=== PATIENT | female | born 1930 | race Caucasian/White ===

== ENCOUNTER 2021-05-17 19:19 | Inpatient (IN) | payer MEDICARE, MEDICAID ==
[2021-05-17 20:07] LABS: #Basophils 0.1 10x3/uL (0.0-0.2); #Monocytes 0.5 10x3/uL (0.0-1.1); %Lymphocytes 26.2 % (18.0-47.0); %Monocytes 6.7 % (0.0-10.0); %Neutrophils 52.7 % (40.0-75.0); Hemoglobin 11.6 g/dL (12.0-15.5); Mean Corpuscular HGB CONC 31.5 g/dL (32.0-36.0); Mean Corpuscular Hemoglobin 28.9 pg (27.0-33.0); Mean Corpuscular Volume 91.8 fl (81.6-98.3); Mean Platelet Volume 10.2 fl (7.4-10.4); Platelet Count 294 10x3/uL (150-450); RBC Distribution Width 14.1 % (11.5-14.5); Red Blood Cell (RBC) Count 4.01 10x6/uL (3.90-5.03); White Blood Cell (WBC) Count 7.6 10x3/uL (3.5-10.5)
[2021-05-17 20:21] LABS: ALT (SGPT) 10 U/L (8-55); AST (SGOT) 14 U/L (5-34); Albumin 3.9 g/dL (3.4-4.8); Alkaline Phosphatase 57 U/L (40-110); Anion Gap 15 mmol/L (10-20); BUN (Urea Nitrogen) 20 mg/dL (9.8-20.1); Bilirubin, Total 0.4 mg/dL (0.2-1.2); Calc. Creatinine Clearance 0 mL/min (70-130); Calcium 8.7 mg/dL (7.8-10.44); Carbon Dioxide 20 mmol/L (23-31); Chloride 108 mmol/L (98-107); Globulin 2.7 g/dL (2.4-3.5); Glucose 113 mg/dL (83-110); Potassium 4.4 mmol/L (3.5-5.1); Protein, Total 6.6 g/dL (5.8-8.1); Sodium 139 mmol/L (136-145)
[2021-05-17] MEDS ORDERED: HYDROcodone/Acetaminophen 5/325 mg Tablet PO PRN (21:25)
[2021-05-17] MEDS ORDERED: Nitroglycerin 0.4 MG TAB (25 Tab Bottle) SL PRN (21:25)
[2021-05-17] MEDS ORDERED: Acetaminophen 325 MG TAB PO PRN (21:25)
[2021-05-17] MEDS ORDERED: Senokot S 8.6-50 MG TAB PO PRN (21:25)
[2021-05-17] MEDS ORDERED: Calcium Carbonate 500 MG ChewTAB PO PRN (21:25)
[2021-05-17] MEDS ORDERED: Famotidine/PF 20 mg/2ml Vial SLOW IVP SCH (22:00)
[2021-05-17] MEDS ORDERED: Mag-Al 1200 mg/1200 mg/30 ML UDCUP PO SCH (22:00)
[2021-05-18] MEDS: Simethicone Chewable 80 MG TAB PO SCH ×2 (00:40→15:26)
[2021-05-18 04:22] LABS: Anion Gap 14 mmol/L (10-20); BUN (Urea Nitrogen) 16 mg/dL (9.8-20.1); Calc. Creatinine Clearance 51 mL/min (70-130); Calcium 8.4 mg/dL (7.8-10.44); Carbon Dioxide 21 mmol/L (23-31); Chloride 113 mmol/L (98-107); Cholesterol 155 mg/dl (< 200 Desired); Glucose 102 mg/dL (83-110); HDL Cholesterol 39 mg/dL (>60 Neg Risk); LDL Cholesterol, Calculated 88 mg/dL; Potassium 4.1 mmol/L (3.5-5.1); Sodium 144 mmol/L (136-145); Triglycerides 141 mg/dL (Less than 150)
[2021-05-18 04:43] LABS: CKMB 2.1 ng/mL (0-6.6)
[2021-05-18] MEDS: Amlodipine 10 MG TAB PO SCH (06:00)
[2021-05-18] MEDS: Lisinopril 20 MG TAB PO SCH (08:30)
[2021-05-18] MEDS: traZODone HCl 50 MG TAB PO SCH (08:30)
[2021-05-18] MEDS: Spironolactone 25 MG TAB PO SCH (08:30)
[2021-05-18] MEDS: PARoxetine 20 MG TAB PO SCH ×2 (08:30→21:34)
[2021-05-18] MEDS: Clopidogrel Bisulfate 75 MG TAB PO SCH (08:30)
[2021-05-18] MEDS: rOPINIRole HCl 0.25 MG TAB PO SCH ×2 (08:30→21:37)
[2021-05-18] MEDS: Gabapentin 100 MG CAP PO SCH ×3 (08:30→21:34)
[2021-05-18] MEDS: metFORMIN 500 MG TAB PO SCH (08:30)
[2021-05-18 09:11] LABS: Hemoglobin A1c 5.8 % (4.0-6.0)
[2021-05-18 16:49] LABS: SARS-CoV-2 PCR by NAA Not Detected (NotDetected)
[2021-05-18] MEDS: Donepezil HCl 5 MG TAB PO SCH (21:34)
[2021-05-18] MEDS: Atorvastatin Calcium 40 MG TAB PO SCH (21:34)
[2021-05-18] MEDS: Enoxaparin Sodium 40 MG/0.4 ML SYRINGE SC SCH (21:34)
[2021-05-19] MEDS: Amlodipine 10 MG TAB PO SCH (05:14)
[2021-05-19] MEDS: Clopidogrel Bisulfate 75 MG TAB PO SCH (08:46)
[2021-05-19] MEDS: rOPINIRole HCl 0.25 MG TAB PO SCH ×2 (08:46→20:27)
[2021-05-19] MEDS: traZODone HCl 50 MG TAB PO SCH (08:46)
[2021-05-19] MEDS: PARoxetine 20 MG TAB PO SCH ×2 (08:46→20:27)
[2021-05-19] MEDS: Lisinopril 20 MG TAB PO SCH (08:46)
[2021-05-19] MEDS: metFORMIN 500 MG TAB PO SCH (08:47)
[2021-05-19] MEDS: Gabapentin 100 MG CAP PO SCH ×3 (08:47→20:27)
[2021-05-19] MEDS: Spironolactone 25 MG TAB PO SCH (08:47)
[2021-05-19] MEDS: Aspirin 81 mg Enteric Coated Tablet PO SCH (14:32)
[2021-05-19] MEDS: Donepezil HCl 5 MG TAB PO SCH (20:27)
[2021-05-19] MEDS: Atorvastatin Calcium 40 MG TAB PO SCH (20:27)
[2021-05-19] MEDS: Enoxaparin Sodium 40 MG/0.4 ML SYRINGE SC SCH (20:28)
[2021-05-20] MEDS: Amlodipine 10 MG TAB PO SCH (06:02)
[2021-05-20] MEDS: traZODone HCl 50 MG TAB PO SCH (08:30)
[2021-05-20] MEDS: rOPINIRole HCl 0.25 MG TAB PO SCH (08:30)
[2021-05-20] MEDS: PARoxetine 20 MG TAB PO SCH (08:30)
[2021-05-20] MEDS: Gabapentin 100 MG CAP PO SCH (08:30)
[2021-05-20] MEDS: metFORMIN 500 MG TAB PO SCH (08:30)
[2021-05-20] MEDS: Lisinopril 20 MG TAB PO SCH (08:30)
[2021-05-20] MEDS: Spironolactone 25 MG TAB PO SCH (08:30)
[2021-05-20] MEDS: Aspirin 81 mg Enteric Coated Tablet PO SCH (08:31)
[2021-05-20 12:55] VITALS: BP 96/49; TEMP 97.2
== END 2021-05-20 13:00 | DRG 281 ==
LOC: CSHERS 19:19 → CSHTELE 22:59 → OBSVTOIN 05-19 15:50
PROVIDERS: ADMIT Student in an Organized Health Care Education/Training Program; ATTEND Hospitalist
DX: I25.10 Atherosclerotic heart disease of native coronary artery without angina pectoris (principal); I21.4 Non-ST elevation (NSTEMI) myocardial infarction; I13.0 Hypertensive heart and chronic kidney disease with heart failure and stage 1 through stage 4 chronic kidney disease, or unspecified chronic kidney disease; I50.32 Chronic diastolic (congestive) heart failure; Z95.5 Presence of coronary angioplasty implant and graft; E11.65 Type 2 diabetes mellitus with hyperglycemia; Z20.822 Contact with and (suspected) exposure to COVID-19; N18.31 Chronic kidney disease, stage 3a; Z88.0 Allergy status to penicillin; Z88.2 Allergy status to sulfonamides; Z91.040 Latex allergy status; G30.9 Alzheimer's disease, unspecified; F02.80 Dementia in other diseases classified elsewhere, unspecified severity, without behavioral disturbance, psychotic disturbance, mood disturbance, and anxiety; E11.22 Type 2 diabetes mellitus with diabetic chronic kidney disease; I44.7 Left bundle-branch block, unspecified; E78.5 Hyperlipidemia, unspecified; K21.9 Gastro-esophageal reflux disease without esophagitis; F32.A Depression, unspecified; Z86.14 Personal history of Methicillin resistant Staphylococcus aureus infection; Z87.891 Personal history of nicotine dependence
CPT/HCPCS: 36415; 36416; 71045; 76705; 80048; 80053; 80061; 82553; 83036; 84484; 85025; 93005; 93306; 96372; 96374; G0378; J1650; S0028; U0003; U0005